=== PATIENT | female | born 1965 | race African-American/Black ===

== ENCOUNTER 2018-09-08 14:26 | Emergency (ER) | payer OTHER ==
[~2018-09-08] VITALS: Ht 160 cm; Wt 63.6 kg
[~2018-09-08 14:26] MED LIST: CLON-570 PO; FERR-89 PO; QUET200T PO
[2018-09-08] MEDS ORDERED: KETOROLAC TROMETHAMINE 30 MG/ML VIAL IM ONE (14:45)
[2018-09-08] MEDS ORDERED: LORazepam 1 MG TABLET PO ONE (14:45)
[2018-09-08] MEDS ORDERED: DIAZEPAM 5 MG/ML 2 ML SYRINGE IM ONE (16:00)
[2018-09-08 16:27] VITALS: BP 117/70
== END 2018-09-08 16:42 | disposition home or self-care (01) ==
LOC: EMS 14:27
DX: M54.10 Radiculopathy, site unspecified (principal); M25.512 Pain in left shoulder; F17.210 Nicotine dependence, cigarettes, uncomplicated; F31.9 Bipolar disorder, unspecified; I10 Essential (primary) hypertension; F12.90 Cannabis use, unspecified, uncomplicated; F13.90 Sedative, hypnotic, or anxiolytic use, unspecified, uncomplicated; F15.90 Other stimulant use, unspecified, uncomplicated
CPT/HCPCS: 96372; 99283; 99406; J1885

== ENCOUNTER 2018-09-26 07:56 | Emergency (ER) | payer OTHER ==
[~2018-09-26] VITALS: Ht 160 cm; Wt 59.1 kg
[2018-09-26] MEDS ORDERED: CYCL10 PO (08:00)
[2018-09-26] MEDS: BACITRACIN 0.9 GM PACKET OINTMENT TP ONE (08:49)
[2018-09-26] MEDS: HYDROCODONE/ACETAMINOPHEN 5-325 MG TABLET PO ONE (08:49)
[2018-09-26] MEDS: AMOX TR/POT CLAV 875 MG/125 MG TABLET PO ONE (08:49)
[2018-09-26 09:05] VITALS: BP 118/92
[2018-09-26 09:31] LABS: BASOPHILS % (AUTO) 0.5 % (0.0-2.0); EOSINOPHILS % (AUTO) 1.5 % (1.0-6.0); HEMATOCRIT 37.5 % (36-46); HEMOGLOBIN 12.7 g/dL (12.0-16.0); LYMPHOCYTES # (AUTO) 0.9 K/uL (1.0-4.8); LYMPHOCYTES % (AUTO) 17.2 % (22.0-44.0); MEAN CORPUSCULAR HEMOGLOBIN 30.6 pg (26.0-34.0); MEAN CORPUSCULAR HGB CONC 33.9 G/dL (31.0-37.0); MEAN CORPUSCULAR VOLUME 90 fL (80-100); MONOCYTES # (AUTO) 0.6 K/uL (0.1-1.0); MONOCYTES % (AUTO) 10.8 % (2.0-9.0); NEUTROPHILS # (AUTO) 3.8 K/uL (1.8-7.7); PLATELET COUNT (AUTO) 211 K/uL (150-450); RED BLOOD CELL COUNT(AUTO) 4.16 MIL/uL (4.00-5.20); RED CELL DISTRIBUTION WIDTH 13.3 % (11.5-14.5)
[2018-09-26 09:40] LABS: ANION GAP 7 mmol/L (8-16); CALCIUM, TOTAL 9.3 mg/dL (8.8-10.5); CARBON DIOXIDE 25 mmol/L (22-29); CHLORIDE 99 mmol/L (98-107); CREATININE 0.78 mg/dL (0.60-1.30); GLOMERULAR FILTR. RATE CALC > 60 mL/min (>60); GLUCOSE,RANDOM 95 mg/dL (70-110); POTASSIUM 4.2 mmol/L (3.5-5.1); SODIUM SERUM 131 mmol/L (136-145); UREA NITROGEN, BLOOD 10 mg/dL (7-18)
[2018-09-26 09:45] LABS: ALANINE AMINOTRANSFERASE 14 U/L (12-78); ALBUMIN 3.1 g/dL (3.4-5.0); ALKALINE PHOSPHATASE 89 U/L (46-116); ASPARTATE AMINOTRANSFERASE 15 U/L (15-37); BILIRUBIN,TOTAL 0.3 mg/dL (0.1-1.0); TOTAL PROTEIN, SERUM 8.5 g/dL (6.4-8.2)
== END 2018-09-26 10:33 | disposition home or self-care (01) ==
LOC: EMS 07:57
DX: L03.011 Cellulitis of right finger (principal); L03.032 Cellulitis of left toe; I10 Essential (primary) hypertension; F31.9 Bipolar disorder, unspecified; F12.90 Cannabis use, unspecified, uncomplicated; F15.90 Other stimulant use, unspecified, uncomplicated; F16.90 Hallucinogen use, unspecified, uncomplicated; F17.210 Nicotine dependence, cigarettes, uncomplicated

== ENCOUNTER 2020-11-07 17:39 | Emergency (ER) | payer OTHER ==
[~2020-11-07 17:39] MED LIST changes: -CLON-570 PO; +CLON0.1T83 PO; +CYCL10 PO
== END 2020-11-07 18:27 | disposition left against medical advice (07) ==
LOC: EMS 17:39
DX: F10.129 Alcohol abuse with intoxication, unspecified (principal); F31.9 Bipolar disorder, unspecified; F20.9 Schizophrenia, unspecified; F17.210 Nicotine dependence, cigarettes, uncomplicated; F12.90 Cannabis use, unspecified, uncomplicated; F13.10 Sedative, hypnotic or anxiolytic abuse, uncomplicated
CPT/HCPCS: Z7502

== ENCOUNTER 2021-03-03 11:21 | Emergency (ER) | payer OTHER ==
[~2021-03-03] VITALS: Ht 160 cm; Wt 77.3 kg
[~2021-03-03 11:21] MED LIST changes: +CLON0.1T2 PO; -CLON0.1T83 PO
[2021-03-03 13:39] VITALS: BP 147/110
== END 2021-03-03 12:02 | disposition left against medical advice (07) ==
LOC: EMS 11:28
DX: T50.7X1A Poisoning by analeptics and opioid receptor antagonists, accidental (unintentional), initial encounter (principal); F31.9 Bipolar disorder, unspecified; I10 Essential (primary) hypertension; F17.210 Nicotine dependence, cigarettes, uncomplicated; F12.90 Cannabis use, unspecified, uncomplicated; F11.90 Opioid use, unspecified, uncomplicated; Y92.89 Other specified places as the place of occurrence of the external cause
CPT/HCPCS: 99283; Z7502

== ENCOUNTER 2021-05-29 00:04 | Emergency (ER) | payer OTHER ==
[~2021-05-29] VITALS: Ht 167.6 cm; Wt 135.0 kg
[2021-05-29 00:20] VITALS: BP 163/134
== END 2021-05-29 00:40 | disposition left against medical advice (07) ==
LOC: EMS 00:08
DX: F19.10 Other psychoactive substance abuse, uncomplicated (principal); F31.9 Bipolar disorder, unspecified; F20.9 Schizophrenia, unspecified; F17.210 Nicotine dependence, cigarettes, uncomplicated; F12.90 Cannabis use, unspecified, uncomplicated; F13.10 Sedative, hypnotic or anxiolytic abuse, uncomplicated
CPT/HCPCS: 99283; Z7502

== ENCOUNTER 2023-08-08 21:14 | Emergency (ER) | payer OTHER ==
[~2023-08-08 21:14] MED LIST changes: -CLON0.1T2 PO; -CYCL10 PO; -FERR-89 PO; +LISI2.5T91 PO; +MUPI1OIN5 TP; -QUET200T PO
== END 2023-08-08 21:30 | disposition left against medical advice (07) ==
LOC: EMS 21:16
DX: Z53.21 Procedure and treatment not carried out due to patient leaving prior to being seen by health care provider (principal)

== ENCOUNTER 2025-04-07 12:07 | Emergency (ER) | payer OTHER ==
[~2025-04-07] VITALS: Ht 160 cm; Wt 59.1 kg
[2025-04-07 13:12] LABS: BASOPHILS % (AUTO) 0.8 % (0.0-2.0); EOSINOPHILS % (AUTO) 0.4 % (1.0-6.0); HEMATOCRIT 40.3 % (36-46); HEMOGLOBIN 12.9 g/dL (12.0-16.0); LYMPHOCYTES % (AUTO) 32.4 % (22.0-44.0); MEAN CORPUSCULAR HEMOGLOBIN 27.7 pg (26.0-34.0); MEAN CORPUSCULAR HGB CONC 32.1 G/dL (31.0-37.0); MEAN CORPUSCULAR VOLUME 86 fL (80-100); MONOCYTES # (AUTO) 0.2 K/uL (0.1-1.0); MONOCYTES % (AUTO) 6.9 % (2.0-9.0); NEUTROPHILS # (AUTO) 1.8 K/uL (1.8-7.7); NEUTROPHILS % (AUTO) 59.5 % (40.0-70.0); PLATELET COUNT (AUTO) 209 K/uL (150-450); RED BLOOD CELL COUNT(AUTO) 4.66 MIL/uL (4.00-5.20); RED CELL DISTRIBUTION WIDTH 16.2 % (11.5-14.5)
[2025-04-07 13:17] LABS: ANION GAP 8 mmol/L (8-16); CALCIUM, TOTAL 9.8 mg/dL (8.8-10.5); CARBON DIOXIDE 27 mmol/L (22-29); CHLORIDE 101 mmol/L (98-107); CREATININE 0.89 mg/dL (0.60-1.30); GLOMERULAR FILTR. RATE CALC > 60 mL/min (>60); GLUCOSE,RANDOM 100 mg/dL (70-110); POTASSIUM 3.7 mmol/L (3.5-5.1); SODIUM SERUM 136 mmol/L (136-145); UREA NITROGEN, BLOOD 8 mg/dL (7-18)
[2025-04-07 13:25] LABS: TROPONIN I-HIGH SENSITIVITY 7 ng/L (<51)
[2025-04-07 14:48] VITALS: BP 151/109; PULSE 98; RESP 18; TEMP 97.6; O2SAT 98
[2025-04-07] MEDS ORDERED: LISI-894 PO (15:38)
[2025-04-07] MEDS ORDERED: LISI-893 PO (15:39)
== END 2025-04-07 15:50 | disposition home or self-care (01) ==
LOC: EMS 12:12
DX: R53.1 Weakness (principal); I10 Essential (primary) hypertension; F14.10 Cocaine abuse, uncomplicated; R51.9 Headache, unspecified; F12.90 Cannabis use, unspecified, uncomplicated; F17.210 Nicotine dependence, cigarettes, uncomplicated; F10.90 Alcohol use, unspecified, uncomplicated; Z90.49 Acquired absence of other specified parts of digestive tract; Z79.899 Other long term (current) drug therapy; Y90.9 Presence of alcohol in blood, level not specified
CPT/HCPCS: 70450; 71045; 80048; 84484; 85025; 93005; 99285; 36415-L1; 36415-TC